=== PATIENT | male | born 1995 | race Caucasian/White ===

== ENCOUNTER 2018-07-21 19:54 | Inpatient (IN) | payer MEDICAID, OTHER ==
[~2018-07-21] VITALS: Ht 190.5 cm; Wt 100.0 kg
[2018-07-21 20:27] LABS: BASOPHILS % (AUTO) 0 % (0-1); EOSINOPHILS % (AUTO) 0.1 % (0-6); HEMATOCRIT 46.8 % (42.0-52.0); HEMOGLOBIN 15.6 g/dl (14.0-17.9); LYMPHOCYTES # (AUTO) 0.3 X10'3 (1.1-4.8); LYMPHOCYTES % (AUTO) 2.2 % (21-51); MEAN CORPUSCULAR HEMOGLOBIN 30.3 PG (27.0-31.0); MEAN CORPUSCULAR HGB CONC 33.4 % (33.0-36.5); MEAN CORPUSCULAR VOLUME 90.7 FL (78-98); MEAN PLATELET VOLUME 8.4 FL (7.4-10.4); MONOCYTES # (AUTO) 0.2 X10'3 (0-0.9); NEUTROPHILS # (AUTO) 14.9 X10'3 (1.8-7.7); NEUTROPHILS % (AUTO) 96.7 % (42-75); PLATELET COUNT 255 X10'3 (140-440); RED BLOOD COUNT 5.16 X10'6 (4.70-6.10); RED CELL DISTRIBUTION WIDTH 14.1 % (11.5-14.5); WHITE BLOOD COUNT 15.4 X10'3 (4.5-11.0)
[2018-07-21 20:44] LABS: INR 1.1 INR; PROTHROMBIN TIME 10.7 SECONDS (9.0-12.0)
[2018-07-21 20:45] LABS: ALANINE AMINOTRANSFERASE 480 U/L (12-78); ALBUMIN 3.7 G/DL (3.4-5.0); ALKALINE PHOSPHATASE 115 IU/L (46-116); ANION GAP 10 (8-16); ASPARTATE AMINO TRANSFERASE 417 U/L (10-37); BILIRUBIN,TOTAL 3.1 MG/DL (0.1-1.0); BLOOD UREA NITROGEN 14 MG/DL (7-18); BUN/CREATININE RATIO 16.7 (5.4-32.0); CALCIUM 9.3 MG/DL (8.5-10.1); CHLORIDE 99 MMOL/L (99-107); CREATININE 0.84 MG/DL (0.60-1.10); GLUCOSE 119 MG/DL (70-104); LIPASE 73 U/L (73-393); POTASSIUM 3.9 MMOL/L (3.5-5.1); SODIUM 138 MMOL/L (135-145); TOTAL CARBON DIOXIDE 29.2 MMOL/L (24-32); TOTAL PROTEIN 7.3 G/DL (6.4-8.2); eGFR > 90 ML/MIN
[2018-07-21] MEDS ORDERED: temazepam 15mg capsule PO PRN (21:00)
[2018-07-21] MEDS ORDERED: normal saline 1000ML IV soln IVB ONE ×4 (22:05→23:05)
[2018-07-21] MEDS ORDERED: morphine 4 MG/ML inj SYRINge IV ONE (22:05)
[2018-07-21] MEDS ORDERED: famotidine/PF 10 mg/ml inj IV ONE (22:05)
[2018-07-21] MEDS ORDERED: ondansetron/PF 4mg/2ml inj IV ONE (22:05)
[2018-07-21 22:12] LABS: CLARITY,URINE CLEAR (Clear); COLOR,URINE YELLOW (Yellow); GLUCOSE, URINE NEGATIVE (Neg); KETONES,URINE NEGATIVE (Neg); LEUKOCYTE ESTERASE ,URINE NEGATIVE (Neg); NITRITES, URINE NEGATIVE (Neg); OCCULT BLOOD,URINE NEGATIVE (Neg); PROTEIN,URINE TRACE mg/dl (Neg)
[2018-07-21] MEDS ORDERED: piperacillin/tazo 3.375gm/50ml 50 ML IV ONE (22:15)
[2018-07-21 22:17] LABS: UA COLLECTION TYPE CLN CATCH MIDSTREAM
[2018-07-21 22:18] LABS: BACTERIA,URINE NONE SEEN /HPF (Neg); RBC,URINE NONE SEEN /HPF (0-2); SQUAMOUS EPITHELIAL CELL,UR FEW /LPF (FEW); WBC,URINE NONE SEEN /HPF (0-4)
[2018-07-21 22:20] LABS: URINE AMPHETAMINE SCREEN POSITIVE (Neg); URINE BARBITUATE SCREEN NEGATIVE (Neg); URINE BENZODIAZEPINES SCREEN NEGATIVE (Neg); URINE CANNABINOID SCREEN POSITIVE (Neg); URINE COCAINE SCREEN NEGATIVE (Neg); URINE METHADONE SCREEN NEGATIVE (Neg); URINE OPIATE SCREEN POSITIVE (Neg); URINE PHENCYCLIDINE SCREEN NEGATIVE (Neg)
[2018-07-21 22:28] LABS: PLATELET ESTIMATE NORMAL; TOTAL CELLS COUNTED 100
[2018-07-21] MEDS ORDERED: magnesium hydroxide 30ml (MOM) UD suspension PO PRN (23:00)
[2018-07-21] MEDS ORDERED: ondansetron/PF 4mg/2ml inj IV PRN (23:00)
[2018-07-21] MEDS ORDERED: diphenhydrAMINE 25mg capsule PO PRN (23:00)
[2018-07-21] MEDS ORDERED: diphenhydrAMINE 50 mg/ml inj IV PRN (23:00)
[2018-07-21] MEDS ORDERED: morphine 2 MG/ML inj. syringe IV PRN (23:00)
[2018-07-21] MEDS ORDERED: metoclopramide 5 mg/ml inj IV PRN (23:00)
[2018-07-21] MEDS ORDERED: acetaminophen 650mg rectal suppository RC PRN (23:00)
[2018-07-21] MEDS ORDERED: mag hydrox/Alum hydrox/simeth 30ml oral suspension PO PRN (23:00)
[2018-07-21] MEDS ORDERED: acetaminophen 325mg tablet PO PRN ×2 (23:00)
[2018-07-21] MEDS ORDERED: HYDROcodone/acetaminophen 5mg/325mg tablet PO PRN (23:00)
[2018-07-21] MEDS ORDERED: HYDROmorphone 1 mg/ml syringe IV PRN (23:00)
[2018-07-21] MEDS ORDERED: bisacodyl 10mg suppository rectal RC PRN (23:00)
[2018-07-21] MEDS: normal saline 1000ml 1,000 ML IV SCH (23:28)
[2018-07-21 23:32] LABS: HEMOGLOBIN A1C 5.1 % (4.5-6.2)
[2018-07-21 23:39] LABS: MAGNESIUM 1.6 MG/DL (1.5-2.4); PHOSPHORUS 2.2 MG/DL (2.3-4.5)
[2018-07-21 23:54] LABS: PARTIAL THROMBOPLASTIN TIME 27 SECONDS (22-32)
[2018-07-22] MEDS ORDERED: piperacillin/tazo 4.5gm/100ml 100 ML IV SCH
[2018-07-22 00:15] VITALS: BP 152/91
[2018-07-22 02:02] LABS: BASOPHILS % (AUTO) 0 % (0-1); EOSINOPHILS % (AUTO) 0.1 % (0-6); HEMATOCRIT 41.2 % (42.0-52.0); HEMOGLOBIN 13.9 g/dl (14.0-17.9); LYMPHOCYTES # (AUTO) 0.3 X10'3 (1.1-4.8); LYMPHOCYTES % (AUTO) 2.4 % (21-51); MEAN CORPUSCULAR HEMOGLOBIN 30.4 PG (27.0-31.0); MEAN CORPUSCULAR HGB CONC 33.8 % (33.0-36.5); MEAN CORPUSCULAR VOLUME 89.9 FL (78-98); MEAN PLATELET VOLUME 8.3 FL (7.4-10.4); MONOCYTES # (AUTO) 0.3 X10'3 (0-0.9); MONOCYTES % (AUTO) 2.4 % (2-12); NEUTROPHILS # (AUTO) 11.2 X10'3 (1.8-7.7); NEUTROPHILS % (AUTO) 95.1 % (42-75); PLATELET COUNT 175 X10'3 (140-440); RED BLOOD COUNT 4.59 X10'6 (4.70-6.10); RED CELL DISTRIBUTION WIDTH 13.9 % (11.5-14.5); WHITE BLOOD COUNT 11.8 X10'3 (4.5-11.0)
[2018-07-22 02:23] LABS: ALANINE AMINOTRANSFERASE 342 U/L (12-78); ALBUMIN 2.9 G/DL (3.4-5.0); ALKALINE PHOSPHATASE 99 IU/L (46-116); ANION GAP 12 (8-16); ASPARTATE AMINO TRANSFERASE 224 U/L (10-37); BILIRUBIN,TOTAL 4.5 MG/DL (0.1-1.0); BLOOD UREA NITROGEN 12 MG/DL (7-18); BUN/CREATININE RATIO 15.8 (5.4-32.0); CALCIUM 8.3 MG/DL (8.5-10.1); CHLORIDE 102 MMOL/L (99-107); CREATININE 0.76 MG/DL (0.60-1.10); GLUCOSE 93 MG/DL (70-104); HDL CHOLESTEROL 69 MG/DL (35-60); LDL CHOLESTEROL 29 MG/DL (50-100); POTASSIUM 3.1 MMOL/L (3.5-5.1); SODIUM 136 MMOL/L (135-145); TOTAL CARBON DIOXIDE 22.4 MMOL/L (24-32); eGFR > 90 ML/MIN
[2018-07-22 02:52] LABS: CHOL/HDL RATIO 1.3 (0.00-4.99); CHOLESTEROL 92 MG/DL (0-200); TOTAL PROTEIN 5.7 G/DL (6.4-8.2); TRIGLYCERIDES 20 MG/DL (20-135)
[2018-07-22] MEDS ORDERED: potassium Cl 20 mEq SR tablet PO PRN ×2 (03:20)
[2018-07-22 03:37] LABS: PLATELET ESTIMATE NORMAL; TOTAL CELLS COUNTED 100
[2018-07-22] MEDS: piperacillin/tazo 4.5gm/100ml 100 ML IV SCH ×3 (05:29→22:01)
[2018-07-22 08:00] VITALS: BP 140/79
[2018-07-22] MEDS: pantoprazole 40 MG vial IV SCH (08:04)
[2018-07-22] MEDS: nicotine 21mg patch - 24 hr TD SCH (08:05)
[2018-07-22] MEDS: docusate sod 100mg capsule PO SCH ×3 (08:05→20:38)
[2018-07-22] MEDS: normal saline 1000ml 1,000 ML IV SCH ×2 (09:37→20:37)
[2018-07-22] MEDS: HYDROmorphone 1 mg/ml syringe IV PRN ×4 (10:46→20:38)
[2018-07-22 12:00] VITALS: BP 165/81
[2018-07-22 19:00] VITALS: BP 136/89
[2018-07-22] MEDS: HYDROcodone/acetaminophen 10/325mg tab PO PRN (22:01)
[2018-07-23] VITALS (16 sets, daily range): BP systolic 114–167; BP diastolic 55–87
[2018-07-23] MEDS: HYDROmorphone 1 mg/ml syringe IV PRN ×6 (01:04→22:56)
[2018-07-23] MEDS: normal saline 1000ml 1,000 ML IV SCH ×3 (05:00→17:50)
[2018-07-23] MEDS: piperacillin/tazo 4.5gm/100ml 100 ML IV SCH ×3 (06:36→22:55)
[2018-07-23] MEDS: docusate sod 100mg capsule PO SCH ×2 (08:00→19:16)
[2018-07-23 08:01] LABS: BASOPHILS # (AUTO) 0.1 X10'3 (0-0.2); BASOPHILS % (AUTO) 0.6 % (0-1); EOSINOPHILS # (AUTO) 0.4 X10'3 (0-0.9); HEMATOCRIT 38.5 % (42.0-52.0); HEMOGLOBIN 12.9 g/dl (14.0-17.9); LYMPHOCYTES # (AUTO) 0.5 X10'3 (1.1-4.8); LYMPHOCYTES % (AUTO) 4.1 % (21-51); MEAN CORPUSCULAR HEMOGLOBIN 30.3 PG (27.0-31.0); MEAN CORPUSCULAR HGB CONC 33.5 % (33.0-36.5); MEAN CORPUSCULAR VOLUME 90.3 FL (78-98); MEAN PLATELET VOLUME 8.8 FL (7.4-10.4); MONOCYTES # (AUTO) 0.7 X10'3 (0-0.9); MONOCYTES % (AUTO) 5.5 % (2-12); NEUTROPHILS # (AUTO) 10.3 X10'3 (1.8-7.7); NEUTROPHILS % (AUTO) 86.8 % (42-75); PLATELET COUNT 143 X10'3 (140-440); RED BLOOD COUNT 4.26 X10'6 (4.70-6.10); RED CELL DISTRIBUTION WIDTH 13.7 % (11.5-14.5); WHITE BLOOD COUNT 11.9 X10'3 (4.5-11.0)
[2018-07-23 08:16] LABS: ALANINE AMINOTRANSFERASE 179 U/L (12-78); ALBUMIN 2.6 G/DL (3.4-5.0); ALBUMIN/GLOBULIN RATIO 0.8 (1.1-1.5); ALKALINE PHOSPHATASE 91 IU/L (46-116); ANION GAP 8 (8-16); ASPARTATE AMINO TRANSFERASE 49 U/L (10-37); BILIRUBIN,TOTAL 3.9 MG/DL (0.1-1.0); BLOOD UREA NITROGEN 12 MG/DL (7-18); BUN/CREATININE RATIO 18.5 (5.4-32.0); CALCIUM 8.7 MG/DL (8.5-10.1); CHLORIDE 106 MMOL/L (99-107); CREATININE 0.65 MG/DL (0.60-1.10); GLUCOSE 99 MG/DL (70-104); POTASSIUM 3.7 MMOL/L (3.5-5.1); SODIUM 139 MMOL/L (135-145); TOTAL CARBON DIOXIDE 24.6 MMOL/L (24-32); TOTAL PROTEIN 5.8 G/DL (6.4-8.2); eGFR > 90 ML/MIN
[2018-07-23] MEDS: pantoprazole 40 MG vial IV SCH (10:04)
[2018-07-23] MEDS: nicotine 21mg patch - 24 hr TD SCH (10:06)
[2018-07-23] MEDS ORDERED: levoFLOXACIN-Levaquin 500mg/D5 0 ML IV ONE (14:05)
[2018-07-23] MEDS ORDERED: diphenhydrAMINE 50 mg/ml inj ONE (14:05)
[2018-07-23] MEDS ORDERED: meperidine/PF 100mg/ml syringe ONE (14:05)
[2018-07-23] MEDS ORDERED: MIDAZolam 5mg/5ml vial ONE (14:05)
[2018-07-23] MEDS ORDERED: glucagon, human recombinant 1mg kit ONE (14:05)
[2018-07-23] MEDS ORDERED: fentaNYL/PF 50MCG/1 ML 2ML syringe ONE (14:05)
[2018-07-23] MEDS ORDERED: iohexol 300 MG/1 ML 50ml polymer ONE (14:06)
[2018-07-23] MEDS ORDERED: LIDOcaine Viscous 15ml cup ONE (14:06)
[2018-07-24] VITALS: BP 147/74
[2018-07-24] MEDS: HYDROcodone/acetaminophen 10/325mg tab PO PRN (01:16)
[2018-07-24] MEDS: normal saline 1000ml 1,000 ML IV SCH (04:52)
[2018-07-24 05:10] LABS: BASOPHILS % (AUTO) 0.3 % (0-1); EOSINOPHILS # (AUTO) 0.4 X10'3 (0-0.9); HEMATOCRIT 34.5 % (42.0-52.0); HEMOGLOBIN 11.5 g/dl (14.0-17.9); LYMPHOCYTES # (AUTO) 1.1 X10'3 (1.1-4.8); LYMPHOCYTES % (AUTO) 14.8 % (21-51); MEAN CORPUSCULAR HEMOGLOBIN 30.1 PG (27.0-31.0); MEAN CORPUSCULAR HGB CONC 33.3 % (33.0-36.5); MEAN CORPUSCULAR VOLUME 90.2 FL (78-98); MEAN PLATELET VOLUME 8.9 FL (7.4-10.4); MONOCYTES # (AUTO) 0.5 X10'3 (0-0.9); MONOCYTES % (AUTO) 6.6 % (2-12); NEUTROPHILS # (AUTO) 5.3 X10'3 (1.8-7.7); NEUTROPHILS % (AUTO) 72.3 % (42-75); PLATELET COUNT 129 X10'3 (140-440); RED BLOOD COUNT 3.82 X10'6 (4.70-6.10); RED CELL DISTRIBUTION WIDTH 13.7 % (11.5-14.5); WHITE BLOOD COUNT 7.4 X10'3 (4.5-11.0)
[2018-07-24 05:27] LABS: ALANINE AMINOTRANSFERASE 112 U/L (12-78); ALBUMIN 2.3 G/DL (3.4-5.0); ALBUMIN/GLOBULIN RATIO 0.7 (1.1-1.5); ALKALINE PHOSPHATASE 93 IU/L (46-116); ANION GAP 6 (8-16); ASPARTATE AMINO TRANSFERASE 34 U/L (10-37); BILIRUBIN,TOTAL 3.1 MG/DL (0.1-1.0); BLOOD UREA NITROGEN 7 MG/DL (7-18); BUN/CREATININE RATIO 10.6 (5.4-32.0); CALCIUM 8.3 MG/DL (8.5-10.1); CHLORIDE 107 MMOL/L (99-107); CREATININE 0.66 MG/DL (0.60-1.10); GLUCOSE 88 MG/DL (70-104); POTASSIUM 3.5 MMOL/L (3.5-5.1); SODIUM 142 MMOL/L (135-145); TOTAL CARBON DIOXIDE 28.7 MMOL/L (24-32); TOTAL PROTEIN 5.4 G/DL (6.4-8.2); eGFR > 90 ML/MIN
[2018-07-24] MEDS: piperacillin/tazo 4.5gm/100ml 100 ML IV SCH (06:03)
[2018-07-24 07:00] VITALS: BP 129/75
[2018-07-24] MEDS ORDERED: pantoprazole 40mg Tablet.DR PO SCH (07:30)
[2018-07-24] MEDS: docusate sod 100mg capsule PO SCH (07:47)
[2018-07-24] MEDS: nicotine 21mg patch - 24 hr TD SCH (07:49)
[2018-07-24] MEDS ORDERED: HYDR-4383 PO (08:58)
[2018-07-24] MEDS ORDERED: LEVO500T2 PO (13:11)
== END 2018-07-24 11:00 | disposition home or self-care (01) | DRG 720 ==
LOC: ER 19:55 → ED HOLD 23:00 → SUR 3N 07-22 00:23
PROVIDERS: ADMIT Family Medicine; ATTEND Internal Medicine
PROC: 0FPB8DZ Removal of Intraluminal Device from Hepatobiliary Duct, Via Natural or Artificial Opening Endoscopic (ICD-10-PCS; principal; 2018-07-23)
PROC: 0FC98ZZ Extirpation of Matter from Common Bile Duct, Via Natural or Artificial Opening Endoscopic (ICD-10-PCS; 2018-07-23)
PROC: BF101ZZ Fluoroscopy of Bile Ducts using Low Osmolar Contrast (ICD-10-PCS; 2018-07-23)
DX: A41.9 Sepsis, unspecified organism (principal); E87.2 Acidosis; R16.0 Hepatomegaly, not elsewhere classified; K80.33 Calculus of bile duct with acute cholangitis with obstruction; B96.1 Klebsiella pneumoniae [K. pneumoniae] as the cause of diseases classified elsewhere; F15.10 Other stimulant abuse, uncomplicated; E87.6 Hypokalemia; K76.0 Fatty (change of) liver, not elsewhere classified; F12.90 Cannabis use, unspecified, uncomplicated; F17.200 Nicotine dependence, unspecified, uncomplicated; Z90.49 Acquired absence of other specified parts of digestive tract
CPT/HCPCS: 36415; 43276; 71045; 74181; 76700; 80053; 80061; 80305; 81001; 83036; 83605; 83690; 83735; 83880; 84100; 84145; 85025; 85610; 85730; 87040; 87070; 87077; 87186; 96365; 96375; 99152; 99153; 99285; A4620; C9113; G0378; J1170; J1200; J1610; J1956; J2175; J2250; J2270; J2405; J2543; J3010; J3490; J7030; Q9967

== ENCOUNTER 2019-03-14 18:00 | Inpatient (IN) | payer MEDICAID ==
[~2019-03-14] VITALS: Ht 190.5 cm; Wt 97.7 kg
[~2019-03-14 18:00] MED LIST: HYDR-4383 PO
[2019-03-14 19:00] LABS: BASOPHILS # (AUTO) 0.1 X10'3 (0-0.2); BASOPHILS % (AUTO) 0.4 % (0-1); EOSINOPHILS # (AUTO) 0.1 X10'3 (0-0.9); EOSINOPHILS % (AUTO) 0.5 % (0-6); HEMATOCRIT 41.4 % (42.0-52.0); HEMOGLOBIN 13.9 g/dl (14.0-17.9); LYMPHOCYTES # (AUTO) 1.1 X10'3 (1.1-4.8); LYMPHOCYTES % (AUTO) 5.9 % (21-51); MEAN CORPUSCULAR HEMOGLOBIN 30.6 PG (27.0-31.0); MEAN CORPUSCULAR HGB CONC 33.7 g/dL (33.0-36.5); MEAN CORPUSCULAR VOLUME 90.9 FL (78-98); MEAN PLATELET VOLUME 8.9 FL (7.4-10.4); MONOCYTES # (AUTO) 1.6 X10'3 (0-0.9); MONOCYTES % (AUTO) 8.4 % (2-12); NEUTROPHILS # (AUTO) 15.7 X10'3 (1.8-7.7); NEUTROPHILS % (AUTO) 84.8 % (42-75); PLATELET COUNT 389 X10'3 (140-440); RED BLOOD COUNT 4.55 X10'6 (4.70-6.10); RED CELL DISTRIBUTION WIDTH 13.2 % (11.5-14.5); WHITE BLOOD COUNT 18.5 X10'3 (4.5-11.0)
[2019-03-14 19:21] LABS: PARTIAL THROMBOPLASTIN TIME 34 SECONDS (22-32)
[2019-03-14 19:26] LABS: ALBUMIN 2.8 G/DL (3.4-5.0); ANION GAP 8 (8-16); BLOOD UREA NITROGEN 11 MG/DL (7-18); BUN/CREATININE RATIO 13.8 (5.4-32.0); CALCIUM 8.8 MG/DL (8.5-10.1); CHLORIDE 96 MMOL/L (99-107); GLUCOSE 115 MG/DL (70-104); POTASSIUM 3.6 MMOL/L (3.5-5.1); SODIUM 131 MMOL/L (135-145); TOTAL CARBON DIOXIDE 26.7 MMOL/L (24-32); TOTAL PROTEIN 7.8 G/DL (6.4-8.2); eGFR > 90 ML/MIN
[2019-03-14 19:27] LABS: ALANINE AMINOTRANSFERASE 64 U/L (12-78); ALBUMIN/GLOBULIN RATIO 0.6 (1.1-1.5); ALKALINE PHOSPHATASE 483 IU/L (46-116); ASPARTATE AMINO TRANSFERASE 19 U/L (10-37)
[2019-03-14] MEDS ORDERED: piperacillin/tazo 3.375gm/50ml 50 ML IV ONE (20:15)
[2019-03-14] MEDS ORDERED: normal saline 1000ML IV soln IV ONE (20:15)
[2019-03-14] MEDS ORDERED: vancomycin/NS 1 GM ADD-VANTAGE 250 ML IV ONE (20:15)
[2019-03-14] MEDS ORDERED: TETanus/Pertussis (Acell)/Diphther VAC/PF (Tdap-Adult) 0.5ml syringe IM ONE (20:20)
[2019-03-14] MEDS ORDERED: iohexol 300mg/ml 100ml inj. ONE (20:24)
[2019-03-14] MEDS ORDERED: magnesium hydroxide 30ml (MOM) UD suspension PO PRN (21:00)
[2019-03-14] MEDS ORDERED: ondansetron/PF 4mg/2ml inj IV PRN (21:00)
[2019-03-14] MEDS ORDERED: mag hydrox/Alum hydrox/simeth 30ml oral suspension PO PRN (21:00)
[2019-03-14] MEDS ORDERED: NO HOME MEDS (21:02)
[2019-03-14] MEDS: morphine 2 MG/ML inj. syringe IV PRN ×2 (21:58→23:57)
--- NOTE | 2019-03-14 23:23 | NUR ---
PT REPORT RECEIVED FROM KRYSTYNA SHRESTHA. AWAITING PT ARRIVAL TO UNIT
[2019-03-14] MEDS: normal saline 1000ml 1,000 ML IV SCH (23:27)
[2019-03-14 23:56] VITALS: BP 152/85
[2019-03-14] MEDS: acetaminophen 325mg tablet PO PRN (23:56)
[2019-03-15] VITALS (18 sets, daily range): BP systolic 115–152; BP diastolic 45–84
[2019-03-15] MEDS: morphine 2 MG/ML inj. syringe IV PRN ×6 (02:06→17:06)
[2019-03-15] MEDS: VANCOmycin 1250MG/NS 250ml Bag 250 ML IV SCH ×3 (03:34→20:15)
[2019-03-15] MEDS: piperacillin/tazo 3.375gm/50ml 50 ML IV SCH ×3 (05:43→22:06)
--- NOTE | 2019-03-15 06:30 | NUR ---
Patient in room ORTH[facility] 4011. I have received report from FADY Jaramillo and had the opportunity to ask questions and assume patient care.
--- NOTE | 2019-03-15 06:37 | NUR ---
I have reviewed and agree with all interventions, assessments performed and documented by FADY Reyes. Problems reprioritized. Patient report given, questions answered & plan of care reviewed with FADY Garcia.
--- NOTE | 2019-03-15 06:46 | NUR ---
Problems reprioritized. Patient report given, questions answered & plan of care reviewed with FADY Garcia.
[2019-03-15 07:11] LABS: BASOPHILS # (AUTO) 0.1 X10'3 (0-0.2); BASOPHILS % (AUTO) 0.7 % (0-1); EOSINOPHILS # (AUTO) 0.2 X10'3 (0-0.9); EOSINOPHILS % (AUTO) 0.9 % (0-6); HEMOGLOBIN 12.8 g/dl (14.0-17.9); LYMPHOCYTES # (AUTO) 1.5 X10'3 (1.1-4.8); LYMPHOCYTES % (AUTO) 7.3 % (21-51); MEAN CORPUSCULAR HEMOGLOBIN 30.1 PG (27.0-31.0); MEAN CORPUSCULAR HGB CONC 32.8 g/dL (33.0-36.5); MEAN CORPUSCULAR VOLUME 91.9 FL (78-98); MEAN PLATELET VOLUME 9.3 FL (7.4-10.4); MONOCYTES # (AUTO) 2.5 X10'3 (0-0.9); MONOCYTES % (AUTO) 12.7 % (2-12); NEUTROPHILS # (AUTO) 15.6 X10'3 (1.8-7.7); NEUTROPHILS % (AUTO) 78.4 % (42-75); PLATELET COUNT 313 X10'3 (140-440); RED BLOOD COUNT 4.24 X10'6 (4.70-6.10); RED CELL DISTRIBUTION WIDTH 13.8 % (11.5-14.5); WHITE BLOOD COUNT 19.9 X10'3 (4.5-11.0)
[2019-03-15 07:27] LABS: ALANINE AMINOTRANSFERASE 64 U/L (12-78); ALBUMIN 2.3 G/DL (3.4-5.0); ALBUMIN/GLOBULIN RATIO 0.5 (1.1-1.5); ALKALINE PHOSPHATASE 472 IU/L (46-116); ANION GAP 8 (8-16); ASPARTATE AMINO TRANSFERASE 42 U/L (10-37); BILIRUBIN,TOTAL 3.2 MG/DL (0.1-1.0); BLOOD UREA NITROGEN 7 MG/DL (7-18); BUN/CREATININE RATIO 8.9 (5.4-32.0); CALCIUM 8.4 MG/DL (8.5-10.1); CHLORIDE 98 MMOL/L (99-107); CREATININE 0.79 MG/DL (0.60-1.10); GLUCOSE 80 MG/DL (70-104); POTASSIUM 3.7 MMOL/L (3.5-5.1); SODIUM 134 MMOL/L (135-145); TOTAL CARBON DIOXIDE 27.7 MMOL/L (24-32); TOTAL PROTEIN 6.8 G/DL (6.4-8.2); eGFR > 90 ML/MIN
[2019-03-15 07:36] LABS: PLATELET ESTIMATE NORMAL; TOTAL CELLS COUNTED 100
[2019-03-15] MEDS: heparin, porcine 5000 units/ml vial SQ SCH ×2 (08:00→20:17)
[2019-03-15] MEDS: acetaminophen 325mg tablet PO PRN ×2 (09:29→18:38)
--- NOTE | 2019-03-15 12:41 | NUR ---
Problems reprioritized. Patient report given, questions answered & plan of care reviewed with FADY Rai for continuation of care.
--- NOTE | 2019-03-15 12:45 | NUR ---
Patient in room ORTHO 4011. I have received report from FALLON SHRESTHA and had the opportunity to ask questions and assume patient care.
[2019-03-15] MEDS: normal saline 1000ml 1,000 ML IV SCH ×2 (12:53→17:05)
--- NOTE | 2019-03-15 12:53 | NUR ---
PATIENT TO THE OR
[2019-03-15] MEDS ORDERED: sevoflurane 250ml liquid IH ONE (13:15)
[2019-03-15] MEDS ORDERED: midazolam 2 mg/2 ml injection ONE (13:18)
[2019-03-15] MEDS ORDERED: fentaNYL /PF 50mcg/ml 5ml ampule ONE (13:19)
[2019-03-15] MEDS ORDERED: dexamethasone sod phosphate 4mg/ml inj. ONE (13:20)
[2019-03-15] MEDS ORDERED: propofol inj 20 ML IV ONE (13:20)
[2019-03-15] MEDS ORDERED: LIDOcaine 2% (20mg/ml) 5ml vial ONE (13:20)
[2019-03-15] MEDS ORDERED: ondansetron/PF 4mg/2ml inj ONE (13:20)
[2019-03-15] MEDS ORDERED: ringers solution, lacted 1,000 ML IV SCH (13:43)
[2019-03-15] MEDS ORDERED: fentaNYL/PF 50MCG/1 ML 2ML syringe IV PRN ×2 (13:45)
[2019-03-15] MEDS ORDERED: hydrALAZINE 20mg/ml inj. IV PRN (13:45)
[2019-03-15] MEDS ORDERED: ondansetron/PF 4mg/2ml inj IV PRN (13:45)
[2019-03-15] MEDS ORDERED: labetalol 20mg/4ml (5mg/ml) syringe IV PRN (13:45)
[2019-03-15] MEDS ORDERED: morphine 4 MG/ML inj SYRINge IV PRN ×2 (13:45)
[2019-03-15] MEDS ORDERED: morphine 10mg/ml inj. ONE ×2 (13:53)
--- NOTE | 2019-03-15 14:10 | NUR ---
Received from OR via ORTHO BED, accompanied by Anesthesiologist DR. RUIZ and report given by Anesthesiolgist. PT ARRIVED ON O2 VIA MASK AT 10L. DRESSING TO ARM CDI, HEMOVAC DRAIN WITH SCANT DRAINAGE. TIDWELL WITH GOOD CSM. PULSES AND SUPERVISOR FERTILIZER PROCESSING WNL. SCD IN PLACE
--- NOTE | 2019-03-15 14:50 | NUR ---
Report called to receiving nurse BEATRIZ SHRESTHA. Transferred via ORHTO BED TO ROOM 4011A Belongings SEE NOTE IN FLOW SHEET. Special Issues communicated to receiving nurse. VSS ON RA
[2019-03-15 17:35] LABS: CLARITY,URINE CLOUDY (Clear); COLOR,URINE YELLOW (Yellow); GLUCOSE, URINE 100 mg/dl (Neg); KETONES,URINE NEGATIVE (Neg); LEUKOCYTE ESTERASE ,URINE NEGATIVE (Neg); NITRITES, URINE NEGATIVE (Neg); OCCULT BLOOD,URINE NEGATIVE (Neg); PROTEIN,URINE 30 mg/dl (Neg); UROBILINOGEN,URINE >=8.0 E.U/dL (0.2-1.0)
[2019-03-15 17:43] LABS: UA COLLECTION TYPE NON-SPECIFIED
[2019-03-15 17:44] LABS: BACTERIA,URINE NONE SEEN /HPF (Neg); RBC,URINE NONE SEEN /HPF (0-2); WBC,URINE 0-4 /HPF (0-4)
[2019-03-15 17:45] LABS: AMORPHOUS URATES 2+; MUCUS STRANDS FEW /LPF (Neg); SQUAMOUS EPITHELIAL CELL,UR NONE SEEN /LPF (FEW)
--- NOTE | 2019-03-15 18:05 | NUR ---
Problems reprioritized. Patient report given, questions answered & plan of care reviewed with NILE SHRESTHA.
--- NOTE | 2019-03-15 18:10 | NUR ---
Patient in room ORTHO 4011. I have received report from FADY Peterson and had the opportunity to ask questions and assume patient care.
[2019-03-15] MEDS ORDERED: VANCOMYCIN LEVEL IV NR (19:30)
[2019-03-15] MEDS: lactobacillus rhamnosus 10,000 MMU CELLS/CAPSULE PO SCH (20:16)
[2019-03-15 23:56] LABS: URINE AMPHETAMINE SCREEN POSITIVE (Neg); URINE BARBITUATE SCREEN NEGATIVE (Neg); URINE BENZODIAZEPINES SCREEN POSITIVE (Neg); URINE CANNABINOID SCREEN POSITIVE (Neg); URINE COCAINE SCREEN NEGATIVE (Neg); URINE METHADONE SCREEN NEGATIVE (Neg); URINE OPIATE SCREEN POSITIVE (Neg); URINE PHENCYCLIDINE SCREEN NEGATIVE (Neg)
[2019-03-16] MEDS: morphine 2 MG/ML inj. syringe IV PRN ×7 (02:29→22:51)
[2019-03-16] MEDS: normal saline 1000ml 1,000 ML IV SCH ×3 (02:32→13:00)
[2019-03-16 02:35] VITALS: BP 129/71
[2019-03-16] MEDS: VANCOmycin 1250MG/NS 250ml Bag 250 ML IV SCH (03:45)
[2019-03-16] MEDS: piperacillin/tazo 3.375gm/50ml 50 ML IV SCH ×3 (05:32→21:45)
[2019-03-16 06:00] VITALS: BP 123/62
--- NOTE | 2019-03-16 06:10 | NUR ---
Patient in room ORTHO 4011. I have received report from NILE SHRESTHA and had the opportunity to ask questions and assume patient care.
--- NOTE | 2019-03-16 06:29 | NUR ---
Problems reprioritized. Patient report given, questions answered & plan of care reviewed with FADY Peterson.
[2019-03-16 06:33] LABS: BASOPHILS % (AUTO) 0.2 % (0-1); EOSINOPHILS % (AUTO) 0.1 % (0-6); HEMATOCRIT 33.3 % (42.0-52.0); HEMOGLOBIN 11.1 g/dl (14.0-17.9); LYMPHOCYTES # (AUTO) 1.2 X10'3 (1.1-4.8); LYMPHOCYTES % (AUTO) 6.4 % (21-51); MEAN CORPUSCULAR HEMOGLOBIN 30.5 PG (27.0-31.0); MEAN CORPUSCULAR HGB CONC 33.5 g/dL (33.0-36.5); MEAN CORPUSCULAR VOLUME 91.2 FL (78-98); MEAN PLATELET VOLUME 9.1 FL (7.4-10.4); MONOCYTES # (AUTO) 0.8 X10'3 (0-0.9); MONOCYTES % (AUTO) 4.4 % (2-12); NEUTROPHILS # (AUTO) 16.9 X10'3 (1.8-7.7); NEUTROPHILS % (AUTO) 88.9 % (42-75); PLATELET COUNT 311 X10'3 (140-440); RED BLOOD COUNT 3.65 X10'6 (4.70-6.10); RED CELL DISTRIBUTION WIDTH 13.8 % (11.5-14.5)
[2019-03-16 06:44] LABS: ALANINE AMINOTRANSFERASE 44 U/L (12-78); ALBUMIN 1.9 G/DL (3.4-5.0); ALBUMIN/GLOBULIN RATIO 0.4 (1.1-1.5); ALKALINE PHOSPHATASE 327 IU/L (46-116); ANION GAP 7 (8-16); ASPARTATE AMINO TRANSFERASE 13 U/L (10-37); BILIRUBIN,TOTAL 0.7 MG/DL (0.1-1.0); BLOOD UREA NITROGEN 12 MG/DL (7-18); BUN/CREATININE RATIO 17.9 (5.4-32.0); CALCIUM 8.2 MG/DL (8.5-10.1); CHLORIDE 103 MMOL/L (99-107); CREATININE 0.67 MG/DL (0.60-1.10); GLUCOSE 108 MG/DL (70-104); POTASSIUM 3.8 MMOL/L (3.5-5.1); SODIUM 138 MMOL/L (135-145); TOTAL CARBON DIOXIDE 27.6 MMOL/L (24-32); TOTAL PROTEIN 6.2 G/DL (6.4-8.2); eGFR > 90 ML/MIN
[2019-03-16] MEDS: heparin, porcine 5000 units/ml vial SQ SCH ×2 (09:12→19:17)
[2019-03-16] MEDS: lactobacillus rhamnosus 10,000 MMU CELLS/CAPSULE PO SCH ×2 (09:12→19:17)
[2019-03-16 10:00] VITALS: BP 135/77
--- NOTE | 2019-03-16 12:15 | NUR ---
PULLED HEMOVAC DRAIN, TIP INTACT, PATIENT TOLERATED WELL, WILL CONTINUE TO MONITOR.
[2019-03-16 18:00] VITALS: BP 113/58
--- NOTE | 2019-03-16 18:25 | NUR ---
Problems reprioritized. Patient report given, questions answered & plan of care reviewed with LINDSEY SHRESTHA.
--- NOTE | 2019-03-16 18:44 | NUR ---
ASSUMED CARE OF PATIENT WITH VERBAL REPORT FROM DOLLY SHRESTHA
[2019-03-16] MEDS: traMADol 50MG tablet PO PRN (21:44)
[2019-03-16 22:00] VITALS: BP 108/56
[2019-03-17 06:00] VITALS: BP 110/61
[2019-03-17 06:29] LABS: BASOPHILS # (AUTO) 0.1 X10'3 (0-0.2); BASOPHILS % (AUTO) 0.6 % (0-1); EOSINOPHILS # (AUTO) 0.3 X10'3 (0-0.9); EOSINOPHILS % (AUTO) 2.4 % (0-6); HEMATOCRIT 28.4 % (42.0-52.0); HEMOGLOBIN 9.6 g/dl (14.0-17.9); LYMPHOCYTES # (AUTO) 2.9 X10'3 (1.1-4.8); LYMPHOCYTES % (AUTO) 21.2 % (21-51); MEAN CORPUSCULAR HEMOGLOBIN 30.8 PG (27.0-31.0); MEAN CORPUSCULAR HGB CONC 33.7 g/dL (33.0-36.5); MEAN CORPUSCULAR VOLUME 91.6 FL (78-98); MEAN PLATELET VOLUME 8.8 FL (7.4-10.4); MONOCYTES % (AUTO) 7.2 % (2-12); NEUTROPHILS # (AUTO) 9.2 X10'3 (1.8-7.7); NEUTROPHILS % (AUTO) 68.6 % (42-75); PLATELET COUNT 298 X10'3 (140-440); RED CELL DISTRIBUTION WIDTH 13.9 % (11.5-14.5); WHITE BLOOD COUNT 13.4 X10'3 (4.5-11.0)
[2019-03-17 06:37] LABS: ALANINE AMINOTRANSFERASE 37 U/L (12-78); ALBUMIN 1.7 G/DL (3.4-5.0); ALBUMIN/GLOBULIN RATIO 0.4 (1.1-1.5); ALKALINE PHOSPHATASE 288 IU/L (46-116); ANION GAP 7 (8-16); ASPARTATE AMINO TRANSFERASE 16 U/L (10-37); BILIRUBIN,TOTAL 0.5 MG/DL (0.1-1.0); BLOOD UREA NITROGEN 10 MG/DL (7-18); BUN/CREATININE RATIO 12.5 (5.4-32.0); CALCIUM 8.1 MG/DL (8.5-10.1); CHLORIDE 105 MMOL/L (99-107); GLUCOSE 86 MG/DL (70-104); POTASSIUM 3.6 MMOL/L (3.5-5.1); SODIUM 139 MMOL/L (135-145); TOTAL CARBON DIOXIDE 26.7 MMOL/L (24-32); TOTAL PROTEIN 5.6 G/DL (6.4-8.2); eGFR > 90 ML/MIN
--- NOTE | 2019-03-17 06:54 | NUR ---
Problems reprioritized. Patient report given, questions answered & plan of care reviewed with KAREN SHRESTHA .
[2019-03-17] MEDS: lactobacillus rhamnosus 10,000 MMU CELLS/CAPSULE PO SCH ×2 (07:25→22:55)
[2019-03-17] MEDS: heparin, porcine 5000 units/ml vial SQ SCH ×2 (07:26→22:55)
[2019-03-17] MEDS: morphine 2 MG/ML inj. syringe IV PRN ×4 (07:27→23:48)
[2019-03-17] MEDS: piperacillin/tazo 3.375gm/50ml 50 ML IV SCH ×2 (09:57→13:00)
[2019-03-17] MEDS: normal saline 1000ml 1,000 ML IV SCH ×2 (09:57→19:00)
[2019-03-17 10:00] VITALS: BP 134/60
[2019-03-17] MEDS ORDERED: VANCOMYCIN LEVEL IV ONE ×2 (11:30→22:30)
--- NOTE | 2019-03-17 14:10 | NUR ---
IV Zosyn due at 1300 today was missed due to IV administrations times incorrect because medications had be given late because operations supervisor 2nd shift did not administer medications at correct time. Pharmacy was called and pharmacist advised us to give zosyn and vancomycin late, which messed up all the times for the day. I was told to skip the 1300 does of Zosyn by Pharmacist. Vancomycin time will be rescheduled by pharmacy.
[2019-03-17] MEDS: traMADol 50MG tablet PO PRN ×2 (14:20→22:55)
[2019-03-17 18:00] VITALS: BP 125/68
--- NOTE | 2019-03-17 18:48 | NUR ---
Problems reprioritized. Patient report given, questions answered & plan of care reviewed with Francesca.
[2019-03-17 22:00] VITALS: BP 116/53
[2019-03-17] MEDS ORDERED: Melatonin 3mg tablet PO PRN (23:10)
[2019-03-18] MEDS: piperacillin/tazo 3.375gm/50ml 50 ML IV SCH ×2 (01:34→05:00)
[2019-03-18] MEDS: morphine 2 MG/ML inj. syringe IV PRN ×5 (04:42→22:32)
[2019-03-18] MEDS: normal saline 1000ml 1,000 ML IV SCH ×2 (05:00→15:00)
[2019-03-18] MEDS: traMADol 50MG tablet PO PRN ×2 (05:31→17:05)
[2019-03-18 06:04] LABS: BASOPHILS # (AUTO) 0.1 X10'3 (0-0.2); BASOPHILS % (AUTO) 1.3 % (0-1); EOSINOPHILS # (AUTO) 0.4 X10'3 (0-0.9); EOSINOPHILS % (AUTO) 3.9 % (0-6); HEMATOCRIT 30.4 % (42.0-52.0); LYMPHOCYTES # (AUTO) 2.5 X10'3 (1.1-4.8); LYMPHOCYTES % (AUTO) 22.3 % (21-51); MEAN CORPUSCULAR HGB CONC 32.8 g/dL (33.0-36.5); MEAN CORPUSCULAR VOLUME 91.5 FL (78-98); MEAN PLATELET VOLUME 8.5 FL (7.4-10.4); MONOCYTES # (AUTO) 0.8 X10'3 (0-0.9); MONOCYTES % (AUTO) 7.5 % (2-12); NEUTROPHILS # (AUTO) 7.3 X10'3 (1.8-7.7); PLATELET COUNT 371 X10'3 (140-440); RED BLOOD COUNT 3.33 X10'6 (4.70-6.10); RED CELL DISTRIBUTION WIDTH 14.3 % (11.5-14.5); WHITE BLOOD COUNT 11.2 X10'3 (4.5-11.0)
[2019-03-18 06:18] LABS: ALANINE AMINOTRANSFERASE 35 U/L (12-78); ALBUMIN 1.8 G/DL (3.4-5.0); ALBUMIN/GLOBULIN RATIO 0.5 (1.1-1.5); ALKALINE PHOSPHATASE 280 IU/L (46-116); ANION GAP 7 (8-16); ASPARTATE AMINO TRANSFERASE 12 U/L (10-37); BILIRUBIN,TOTAL 0.4 MG/DL (0.1-1.0); BLOOD UREA NITROGEN 9 MG/DL (7-18); BUN/CREATININE RATIO 14.8 (5.4-32.0); CALCIUM 7.9 MG/DL (8.5-10.1); CHLORIDE 105 MMOL/L (99-107); CREATININE 0.61 MG/DL (0.60-1.10); GLUCOSE 88 MG/DL (70-104); SODIUM 141 MMOL/L (135-145); TOTAL CARBON DIOXIDE 28.9 MMOL/L (24-32); TOTAL PROTEIN 5.8 G/DL (6.4-8.2); eGFR > 90 ML/MIN
[2019-03-18 07:00] VITALS: BP 112/74
--- NOTE | 2019-03-18 07:11 | NUR ---
Patient in room ORTH[facility] 4011. I have received report from ALICE SHRESTHA and had the opportunity to ask questions and assume patient care.
[2019-03-18] MEDS: lactobacillus rhamnosus 10,000 MMU CELLS/CAPSULE PO SCH ×2 (08:17→19:46)
[2019-03-18] MEDS: heparin, porcine 5000 units/ml vial SQ SCH ×2 (08:18→19:46)
[2019-03-18 11:00] VITALS: BP 132/80
--- NOTE | 2019-03-18 15:59 | NUR ---
Patient medicated regularly for pain in left arm see karis. Patient had visitor come and give him a wad of money Staff questioned patient about why he was delivered gibbons. patient stated that it was owed to him for work. Staff informed patient that he would need to have door open and be accountable to staff. patient stated he would comply. Patient at 1500hrs was visited by a friend called John who visited briefly then left. staff returned to room and asked patient if he was "slipped" anything. patient denied a transaction, but was defensive. Staff reiterated policy and importance of staying" clean" while in hospital, patient once again stated he cared more about getting clean for the sake of his daughter than i did about him being clean. Staff frequently checking on patient with door open.will continue to monitor.
[2019-03-18 17:00] VITALS: BP 132/69
--- NOTE | 2019-03-18 18:38 | NUR ---
Problems reprioritized. Patient report given, questions answered & plan of care reviewed with Tami SHRESTHA.
[2019-03-18 22:00] VITALS: BP 118/61
[2019-03-19] MEDS: traMADol 50MG tablet PO PRN ×2 (01:32→12:50)
[2019-03-19] MEDS: normal saline 1000ml 1,000 ML IV SCH ×2 (01:32→11:00)
[2019-03-19 05:23] LABS: BASOPHILS # (AUTO) 0.1 X10'3 (0-0.2); BASOPHILS % (AUTO) 1.1 % (0-1); EOSINOPHILS # (AUTO) 0.9 X10'3 (0-0.9); EOSINOPHILS % (AUTO) 7.2 % (0-6); HEMATOCRIT 31.1 % (42.0-52.0); HEMOGLOBIN 10.5 g/dl (14.0-17.9); LYMPHOCYTES # (AUTO) 2.7 X10'3 (1.1-4.8); LYMPHOCYTES % (AUTO) 22.6 % (21-51); MEAN CORPUSCULAR HEMOGLOBIN 30.8 PG (27.0-31.0); MEAN CORPUSCULAR HGB CONC 33.8 g/dL (33.0-36.5); MEAN CORPUSCULAR VOLUME 91.1 FL (78-98); MEAN PLATELET VOLUME 8.3 FL (7.4-10.4); MONOCYTES # (AUTO) 1.1 X10'3 (0-0.9); MONOCYTES % (AUTO) 8.9 % (2-12); NEUTROPHILS # (AUTO) 7.2 X10'3 (1.8-7.7); NEUTROPHILS % (AUTO) 60.2 % (42-75); PLATELET COUNT 443 X10'3 (140-440); RED BLOOD COUNT 3.42 X10'6 (4.70-6.10); RED CELL DISTRIBUTION WIDTH 14.1 % (11.5-14.5)
[2019-03-19 05:28] LABS: ALANINE AMINOTRANSFERASE 46 U/L (12-78); ALBUMIN 1.8 G/DL (3.4-5.0); ALBUMIN/GLOBULIN RATIO 0.5 (1.1-1.5); ALKALINE PHOSPHATASE 324 IU/L (46-116); ANION GAP 4 (8-16); ASPARTATE AMINO TRANSFERASE 23 U/L (10-37); BILIRUBIN,TOTAL 0.3 MG/DL (0.1-1.0); BLOOD UREA NITROGEN 11 MG/DL (7-18); BUN/CREATININE RATIO 16.2 (5.4-32.0); CALCIUM 8.6 MG/DL (8.5-10.1); CHLORIDE 106 MMOL/L (99-107); CREATININE 0.68 MG/DL (0.60-1.10); GLUCOSE 77 MG/DL (70-104); POTASSIUM 4.6 MMOL/L (3.5-5.1); SODIUM 139 MMOL/L (135-145); TOTAL CARBON DIOXIDE 28.6 MMOL/L (24-32); TOTAL PROTEIN 5.8 G/DL (6.4-8.2); eGFR > 90 ML/MIN
[2019-03-19 06:00] VITALS: BP 130/64
--- NOTE | 2019-03-19 06:11 | NUR ---
Reviewed all of [facility] RN charting and in agreement for this shift including medication administration.
--- NOTE | 2019-03-19 06:33 | NUR ---
Report given to Karen SHRESTHA.
[2019-03-19] MEDS: lactobacillus rhamnosus 10,000 MMU CELLS/CAPSULE PO SCH (08:07)
[2019-03-19] MEDS: heparin, porcine 5000 units/ml vial SQ SCH (08:07)
--- NOTE | 2019-03-19 09:30 | NUR ---
Report to Margo SHRESTHA
[2019-03-19 10:00] VITALS: BP 142/90
[2019-03-19] MEDS ORDERED: CLIN-96 PO (11:35)
[2019-03-19] MEDS ORDERED: TRAM50TA2 PO (11:35)
--- NOTE | 2019-03-19 16:15 | NUR ---
Patient discharged at 1615. Patient reviewed discharge packet and had medications delivered by [facility]. PIV was removed with cannula intact. Patient belongings were gathered and sent with patient. Patient refuse wheelchair and requested to leave on foot stating that he would wait for his mom (Puja) outside.
== END 2019-03-19 16:15 | disposition home or self-care (01) | DRG 720 ==
LOC: ER 18:01 → ORTHO 4S 03-15 00:01 → CMPBEDREQ 03-18 08:04
PROVIDERS: ADMIT Internal Medicine; ATTEND Internal Medicine
PROC: BP2U1ZZ Computerized Tomography (CT Scan) of Left Upper Extremity using Low Osmolar Contrast (ICD-10-PCS; 2019-03-14)
PROC: 0J9H00Z Drainage of Left Lower Arm Subcutaneous Tissue and Fascia with Drainage Device, Open Approach (ICD-10-PCS; principal; 2019-03-15 13:15)
DX: A41.9 Sepsis, unspecified organism (principal); E87.1 Hypo-osmolality and hyponatremia; F11.23 Opioid dependence with withdrawal; L02.414 Cutaneous abscess of left upper limb; B95.62 Methicillin resistant Staphylococcus aureus infection as the cause of diseases classified elsewhere; F12.10 Cannabis abuse, uncomplicated; F17.210 Nicotine dependence, cigarettes, uncomplicated; L03.114 Cellulitis of left upper limb; Z59.0 Homelessness; Z90.49 Acquired absence of other specified parts of digestive tract
CPT/HCPCS: 36415; 71045; 73201; 80053; 80202; 80305; 81001; 82948; 83605; 84145; 85025; 85610; 85730; 87040; 87070; 87075; 87077; 87081; 87102; 87186; 90471; 96361; 96365; 96368; 96375; 99285; A4618; A6223; A6446; A6449; A7000; G0378; J1100; J1644; J2001; J2250; J2270; J2405; J2543; J2704; J3010; J3370; J7030; J7120; Q9967

== ENCOUNTER 2024-11-19 12:33 | Emergency (ER) | payer MEDICAID ==
[~2024-11-19] VITALS: Ht 190.5 cm; Wt 138.0 kg
[~2024-11-19 12:33] MED LIST changes: +CLIN-97 PO; -HYDR-4383 PO
[2024-11-19 13:01] VITALS: TEMP 98.9
[2024-11-19 14:31] VITALS: BP 144/78; PULSE 85; RESP 15; O2SAT 97
== END 2024-11-19 14:40 | disposition home or self-care (01) ==
LOC: ER 12:33
DX: Z02.9 Encounter for administrative examinations, unspecified (principal); F12.90 Cannabis use, unspecified, uncomplicated; F15.90 Other stimulant use, unspecified, uncomplicated; F11.90 Opioid use, unspecified, uncomplicated; Z90.49 Acquired absence of other specified parts of digestive tract
CPT/HCPCS: 99281